=== PATIENT | male | born 1995 | race Asian ===

== ENCOUNTER 2017-05-16 20:04 | Emergency (ER) | payer OTHER ==
[~2017-05-16] VITALS: Ht 180.3 cm; Wt 70.0 kg
[2017-05-16 20:06] VITALS: BP 135/96; PULSE 88; RESP 16; TEMP 98.7; O2SAT 100
--- NOTE | 2017-05-16 21:24 | PD ---
HPI Chief Complaint: Laceration/Skin Injury Time Seen by Provider: 21:13 Travel History International Travel<30 days: No Contact w/Intl Traveler<30days: No Traveled to known affect area: No History of Present Illness HPI 21yo M with no PMH presents to the ED with c/o laceration to left third digit. Pt was cutting broccoli at 7:30pm when he cut his finger. Denies any other injuries. Denies any numbness, weakness. Unknown tetanus. PFSH Past Medical History Medical History: Denies Significant Hx Diminished Hearing: No Immunizations Current: No Tetanus Vaccination: > 5 Years Past Surgical History Surgical History: No Previous Surgery Social History Alcohol Use: No Tobacco Use: No Substance Use: No Allergies-Medications (Allergen,Severity, Reaction): Coded Allergies: No Known Allergies (Unverified , 05/16/17) Reported Meds & Prescriptions Reported Meds & Active Scripts Active No Active Prescriptions or Reported Medications Review of Systems Except as stated in HPI: all other systems reviewed are Neg Physical Exam Narrative GENERAL: 21yo M not in distress. SKIN: Focused skin assessment warm/dry. HEAD: Atraumatic. Normocephalic. EYES: Pupils equal and round. No scleral icterus. No injection or drainage. CARDIOVASCULAR: Regular rate and rhythm. No murmur appreciated. RESPIRATORY: No accessory muscle use. Clear to auscultation. Breath sounds equal bilaterally. GASTROINTESTINAL: Abdomen soft, non-tender, nondistended. MUSCULOSKELETAL: Left hand: +2cm laceration in medial aspect of third DIP. Able to fully flex and extend 3rd PIP, IP, DIP. Sensation intact. Cap refill < 2 sec. Radial pulse 2+. NEUROLOGICAL: Awake and alert. No obvious cranial nerve deficits. Motor grossly within normal limits. Normal speech. PSYCHIATRIC: Appropriate mood and affect; insight and judgment normal. Data Data Last Documented VS Vital Signs Date Time Temp Pulse Resp B/P (MAP) Pulse Ox O2 Delivery O2 Flow Rate FiO2 05/16/17 20:06 98.7 88 16 135/96 (109) 100 Room Air Orders Orders Lidocaine 1% Inj (50 Ml) (Xylocaine 1% I (05/16/17 21:30) [facility] Medical Decision Making Medical Screen Exam Complete: Yes Emergency Medical Condition: Yes Differential Diagnosis Finger laceration Narrative Course 21yo M with small laceration in left third digit after slicing it with a knife while cooking today. Neurovascular intact. Laceration repaired. Will cover with keflex because it is the hand. Tetanus updated. Return precautions given. Procedures Procedure Narrative LACERATION LOCATION: Left 3rd digit LENGTH: 2cm NUMBER OF STITCHES/NARCISA: 4 REPAIR: The area of the laceration was prepped with Betadine and sterilely draped. The laceration was infiltrated with 2 cc 1% lidocaine. The wound was copiously irrigated and explored without evidence of foreign body, tendon injury or neurovascular injury. The wound was closed using 5-0 nylon. This was a single layer repair. A sterile dressing was applied. The patient was advised to keep the dressing clean and dry. Patient tolerated the procedure well. Diagnosis Primary Impression: Finger laceration Qualified Codes: S61.213A - Laceration without foreign body of left middle finger without damage to nail, initial encounter Patient Instructions: General Instructions Departure Forms: Tests/Procedures Additional Instructions: Please follow up with your primary care physician or the ED in 7-10 days for suture removal. Return to the ED if any signs of infection. Med/Other Pt SpecificInfo: Prescription(s) given Scripts Acetaminophen (Tylenol) 325 Mg Tab 650 MG PO Q6H Y for PAIN SCALE 1 TO 4, #20 TAB 0 Refills Prov: Claudia Rodgers DO 05/16/17 Cephalexin (Cephalexin) 500 Mg Cap 500 MG PO Q12H for Infection for 7 Days, #14 CAP 0 Refills Prov: Claudia Rodgers DO 05/16/17 Disposition: 01 DISCHARGE HOME Condition: Stable Claudia Rodgers DO May 16, 2017 21:24
[2017-05-16] MEDS ORDERED: LIDOCAINE HCL 1% 50 ML VIAL INFIL ONE (21:30)
[2017-05-16] MEDS ORDERED: TYLE325T PO (21:50)
[2017-05-16] MEDS ORDERED: CEPH500C PO (21:50)
[2017-05-16] MEDS ORDERED: TETANUS/DIPHTHERIA TOXOID ADULT 0.5 ML VIAL IM ONE (22:00)
== END 2017-05-16 22:29 | disposition home or self-care (01) ==
LOC: NEPD 20:04
DX: S61.213A Laceration without foreign body of left middle finger without damage to nail, initial encounter (principal); W26.0XXA Contact with knife, initial encounter; Y93.G3 Activity, cooking and baking
CPT/HCPCS: 12001; 90471; 90714; 96372